=== PATIENT | female | born 1945 | race Caucasian/White ===

== ENCOUNTER 2017-04-23 21:00 | Emergency (ER) | payer OTHER ==
[~2017-04-23] VITALS: Ht 139.7 cm; Wt 69.3 kg
[~2017-04-23 21:00] MED LIST: ACET-1256 PO; ATOR-22 PO; CALCTAB5 PO; VITAMIN D PO; VITAMIN E PO; ZNTT/150 PO
[2017-04-23 21:05] VITALS: TEMP 36.7; Ht 139.7 cm; Wt 69.3 kg
--- NOTE | 2017-04-23 21:18 | EMERGENCY ROOM VISIT NOTE ---
History Report prepared by Bridget: Magui Camargo Under the Supervision of: Dr. Tan Peña M.D. First contact with patient: 21:09 Chief Complaint: SWELLING TO EXTREMITY Stated Complaint: POSSIBLE DVT L LEG History of Present Illness The patient is a 72 year old female who presents to the Emergency Room with complaints of constant left lower leg swelling beginning 1 week ago. The patient states that she drove 4 hours to [place] and 2 days after her trip she began to notice her left leg swelling. She complains of leg tightness. She denies any fever or pain. She reports that she follows with an orthopedic doctor for back pain in [place]. Source of History: patient Onset: 1 week ago Position: leg (left) Quality: other (swelling) Timing: constant Associated Symptoms: No fevers Note: Complains of leg tightness. Review of Systems See HPI for pertinent positives & negatives. A total of 10 systems reviewed and were otherwise negative. Past Medical & Surgical Medical Problems: (1) Hernia Family History Gallbladder disease Kidney disease Kidney stones Lung disease Social History Smoking Status: Never Smoker Smokeless Tobacco Use: No Alcohol Use: none Marital Status: single Occupation Status: retired Current/Historical Medications Scheduled Atorvastatin (Lipitor), 20 MG PO DAILY Calcium Carbonate-Vitamin D W/ (Caltrate 600 Plus), 1 TAB PO DAILY Docusate Sodium (Docusate Sodium), 1 CAP PO DAILY Vitamin E (E-400), 400 UNIT PO DAILY Scheduled PRN Acetaminophen (Tylenol), 500 MG PO Q4H PRN for Pain Dicyclomine Hcl (Bentyl), 10 MG PO QID PRN for Pain Hydrocodone/Acetaminophen 7.5MG/325MG ([place] 7.5MG/325MG), 1 TAB PO Q6 PRN for Pain Lidocaine (Lidoderm Patch 5%), 1 PATCH TOP DAILY PRN for Pain Ranitidine (Zantac), 150 MG PO DAILY PRN for GI Upset Allergies Coded Allergies: Morphine (Verified Adverse Reaction, Intermediate, BLOOD SUGAR ISSUES, BLOOD PRESSURE ISSUES, 07/30/14) Physical Exam Vital Signs Date Time Temp Pulse Resp B/P (MAP) Pulse Ox O2 Delivery O2 Flow Rate FiO2 04/23/17 22:52 64 18 144/81 97 04/23/17 21:05 36.7 70 18 154/76 95 Room Air Physical Exam GENERAL: Patient is a healthy-appearing well-nourished [] HEAD: Normocephalic atraumatic EYES: Ocular movements intact pupils equal and react to light OROPHARYNX mucous membranes are moist no exudates present no erythema or edema present NECK: Supple no nuchal rigidity CHEST: Good equal expansion LUNGS: Clear and equal to auscultation CARDIAC: Normal S1 and S2 ABDOMEN: Soft nontender no guarding BACK: No CVA tenderness EXTREMITIES: No pain upon palpation normal muscle strength in all groups no clubbing cyanosis or edema NEURO: Patient is following commands and answering questions appropriately. Alert and oriented x3 Cranial Nerves 2-12 grossly intact Medical Decision & Procedures ER Provider Diagnostic Interpretation: Radiology results as stated below per my review and radiologist interpretation: ULTRASOUND LEFT LOWER EXTREMITY VENOUS TECHNIQUE: Real-time, grayscale, and color Doppler sonography of the deep veins of the left lower extremity was performed from the inguinal crease to the calf. Compression and augmentation were utilized. FINDINGS: There is no sonographic evidence of deep venous thrombosis identified in the left lower extremity. The common femoral, superficial femoral, and popliteal veins are patent and normally compressible. The greater saphenous vein and the profunda femoris vein at the junction with the common femoral vein are clear. The visualized calf veins are patent. IMPRESSION: There is no sonographic evidence of deep venous thrombosis identified in the left lower extremity. Electronically signed by: Chalino Desai M.D. 04/23/2017 10:09 PM Dictated Date/Time: 04/23/2017 10:08 PM ED Course 2110: Past medical records reviewed. The patient was evaluated in room C6. A complete history and physical examination was performed. 2253: Upon reexamination the patient is doing well. I discussed results and treatment plan with the patient. She verbalizes agreement and understanding. The patient is ready for discharge. Medical Decision Differential diagnosis: Etiologies such as DVT, musculoskeletal, infection, joint effusion, trauma, lymphedema, idiopathic, CHF, as well as others were entertained. Medication Reconciliation: I attest that I have personally reviewed the patient' s current medication list Blood Pressure Screening: Patient was found to have an elevated blood pressure and was referred to their primary care doctor for recheck and further treatment This is a 72-year-old female who presents emergency department complaining of left leg swelling. There is no evidence of swelling on examination however the patient was sent for an ultrasound which did not show any evidence of a DVT. I stressed the need for follow-up with orthopedics if the patient is continue to have pain to have a repeat ultrasound done at approximately one week. Patient was given compression stockings in the emergency department and was in agreement with the treatment plan. Impression Primary Impression: Calf pain Scribe Attestation The scribe's documentation has been prepared under my direction and personally reviewed by me in its entirety. I confirm that the note above accurately reflects all work, treatment, procedures, and medical decision making performed by me. Departure Information Dispostion Home / Self-Care Referrals Boubacar Lou D.O. (PCP) Forms HOME CARE DOCUMENTATION FORM, IMPORTANT VISIT INFORMATION, WORK / SCHOOL INSTRUCTIONS Patient Instructions Diya GANDHI [facility] Additional Instructions Follow up with DR Mann's office Need repeat U/S in one week if continuing to have leg pain You were found to have an elevated blood pressure today (>120 sytolic or >90 diastolic). Per medicare guidelines, you need to follow up with this blood pressure screening with your Primary Care Physician (PCP). For a new PCP call [phone]. You have been examined and treated today on an emergency basis only. This is not a substitute for, or an effort to provide, complete comprehensive medical care. It is impossible to recognize and treat all injuries or illnesses in a single emergency department visit. It is therefore important that you follow up closely with Dr Lou. Call as soon as possible for an appointment. Thank you for your time and consideration. I look forward to speaking with you again soon. Please don't hesitate to call us if you have any questions. Problem Qualifiers Primary Impression: Calf pain Laterality: left Qualified Codes: M79.662 - Pain in left lower leg
[2017-04-23] MEDS ORDERED: VITACAP37 PO (21:54)
[2017-04-23] MEDS ORDERED: DICY10CA55 PO (21:54)
[2017-04-23] MEDS ORDERED: HYDR-3983 PO (21:54)
[2017-04-23] MEDS ORDERED: CHOL1000 PO (21:54)
[2017-04-23] MEDS ORDERED: DOCU100C31 PO (21:54)
[2017-04-23] MEDS ORDERED: CALCTAB7 PO (21:54)
--- NOTE | 2017-04-23 22:10 | DIAGNOSTIC IMAGING REPORT ---
ULTRASOUND LEFT LOWER EXTREMITY VENOUS CLINICAL HISTORY: Left leg swelling. COMPARISON STUDY: No priors. TECHNIQUE: Real-time, grayscale, and color Doppler sonography of the deep veins of the left lower extremity was performed from the inguinal crease to the calf. Compression and augmentation were utilized. FINDINGS: There is no sonographic evidence of deep venous thrombosis identified in the left lower extremity. The common femoral, superficial femoral, and popliteal veins are patent and normally compressible. The greater saphenous vein and the profunda femoris vein at the junction with the common femoral vein are clear. The visualized calf veins are patent. IMPRESSION: There is no sonographic evidence of deep venous thrombosis identified in the left lower extremity. Electronically signed by: Chalino Desai M.D. 04/23/2017 10:09 PM Dictated Date/Time: 04/23/2017 10:08 PM
[2017-04-23] MEDS ORDERED: NF656 TOP (22:31)
[2017-04-23 22:52] VITALS: BP 144/81; PULSE 64; O2SAT 97
== END 2017-04-23 22:53 | disposition home or self-care (01) ==
LOC: C.EDB 21:01 → C.EDC 22:53
DX: M79.662 Pain in left lower leg (principal); Z83.79 Family history of other diseases of the digestive system; Z84.1 Family history of disorders of kidney and ureter; Z83.6 Family history of other diseases of the respiratory system; Z79.899 Other long term (current) drug therapy

== ENCOUNTER → 2017-05-17 | Outpatient (CLI) | payer OTHER ==
[~2017-05-17] MED LIST changes: -CALCTAB5 PO; +CALCTAB7 PO; +DICY10CA55 PO; +DOCU100C31 PO; +HYDR-3983 PO; +NF656 TOP; +VITACAP37 PO; -VITAMIN D PO; -VITAMIN E PO
--- NOTE | 2017-05-17 14:32 | MAMMOGRAPHY REPORT ---
BILATERAL DIGITAL SCREENING MAMMOGRAM WITH CAD: 05/17/2017 CLINICAL HISTORY: Routine screening. The patient reported to the technologist that she has intermitt ent bilateral tenderness. TECHNIQUE: Current study was also evaluated with a Computer Aided Detection (CAD) system. Bilateral CC and MLO views were obtained. COMPARISON: Comparison is made to exams dated: 03/25/2016 mammogram, 01/08/2015 mammogram - [facility], 01/29/2012 mammogram, 02/13/2011 mammogram, 02/03/2010 mammogram, and 12/05/2008 [facility]og [facility]. BREAST COMPOSITION: There are scattered areas of fibroglandular density in both breasts. FINDINGS: No suspicious masses, calcifications, or areas of architectural distortion are noted in ei ther breast. There has been no significant interval change compared to prior exams. IMPRESSION: ACR BI-RADS CATEGORY 1: NEGATIVE There is no mammographic evidence of malignancy. A 1 year screening mammogram is recommended. Also r ecommend clinical follow-up for bilateral intermittent tenderness. The patient will receive written notification of the results. Approximately 10% of breast cancers are not detected with mammography. A negative mammographic report should not delay biopsy if a clinically suggestive mass is present. Geeta Nye M.D. /:05/17/2017 12:39:54 Pattern Marking Supervisor: Vivian LUA)(M), [facility] letter sent: Normal 1/2 BI-RADS Code: ACR BI-RADS Category 1: Negative
== END | disposition home or self-care (01) ==
LOC: C.MAMM 12:16
PROVIDERS: ATTEND Family Medicine
DX: Z12.31 Encounter for screening mammogram for malignant neoplasm of breast (principal)

== ENCOUNTER → 2017-12-22 | Day surgery (SDC) | payer OTHER ==
[2017-12-07 15:17] VITALS: Ht 139.7 cm; Wt 65.9 kg
[~2017-12-22] VITALS: Ht 139.7 cm; Wt 65.9 kg
[~2017-12-22] MED LIST changes: +500ML BSS 0.3ML EPI 1:1000PF IRRIG ONE; +ACETAMINOPHEN 325 MG TAB PO PRN; +AMVISC PLUS 0.8ML SYRINGE INT OCU ONE; +ATROPINE SULFATE 0.1 MG/ML 5ML SYR IV PRN; +AcetaZOLAMIDE 250 MG TAB PO SCH; +BETAXOLOL HCL 0.25% OP SUSP PER DROP CHARGE OPR SCH; +BRIMONIDINE TART 0.2% OP SOLN PER DROP CHARGE ONE; +BSS FLUSH ONE; -DOCU100C31 PO; +ENDOCOAT 0.85ML SYRINGE INT OCU ONE; +EpINEphrine INJ 1MG/ML AMP 1 MG/ML AMP ONE; +LACTATED RINGER'S 1000ML 500 ML IV SCH; +LIDO1PAD2 TOP; +LIDOCAINE 4% OP SOLN DROP CHARGE ONE; +LIDOCAINE 4% OP SOLN DROP CHARGE OPR SCH; +LIDOCAINE HCL 1% MPF 2 ML VIAL ONE; +MIDAZOLAM HCL 1 MG/ML 2ML VIAL ONE; +MISCCAP80 PO; +MIX: 4ML BSS 1ML EPI 1:1000 PF INSTIL ONE; +MOXIFLOXACIN OPH SOLN PER DROP CHARGE ONE; -NF656 TOP; +POVIDONE-IODINE OP SOLN 30 ML BTL ONE; +PROPARACAINE 0.5% OP SOLN PER DROP CHARGE OPR SCH; +RANI150T85 PO; +TOBRAMYCIN/DEXAMETHASONE OPH OINT PER APPLN CHARGE ONE; -ZNTT/150 PO
--- NOTE | 2017-12-22 07:17 | History & Physical Bridge - SC ---
H&P Re-Evaluation Bridge Note: I have examined the patient, reviewed the History & Physical and in the interval since the performance of the History & Physical I have noted the following changes of clinical significance: No changes noted
[2017-12-22] MEDS: PHENYLEPHRINE HCL 2.5% OP SOLN PER DROP CHARGE OPR SCH ×2 (07:58→08:04)
[2017-12-22] MEDS: TROPICAMIDE 1% OP SOLN PER DROP CHARGE OPR SCH ×2 (07:59→08:05)
[2017-12-22] MEDS: CYCLOPENTOLATE HCL 1% OP SOLN PER DROP CHARGE OPR SCH ×2 (08:00→08:06)
[2017-12-22] MEDS: MOXIFLOXACIN OPH SOLN PER DROP CHARGE OPR SCH ×2 (08:01→08:11)
--- NOTE | 2017-12-22 08:42 | [facility] Operative Report ---
Operative Report Date of Service Dec 22, 2017. Operative Report 1. PREOPERATIVE DIAGNOSIS: Senile nuclear cataract, right eye. 2. POSTOPERATIVE DIAGNOSIS: Senile nuclear cataract, right eye. 3. PROCEDURE: Phacoemulsification of right cataract with posterior chamber lens implant, type Bausch [employer] Lomb, model MI60L, power +29.5 diopters. ANESTHESIA: Local standby. SURGEON: Dr. Richardson. COMPLICATIONS: None. OPERATING TIME: 10 minutes. 4. OPERATION AND FINDINGS: DESCRIPTION OF PROCEDURE: The right pupil was dilated. The anesthetic was administered using a topical technique. The right eye was prepped and draped. A speculum was placed. A clear corneal incision was formed. The chamber was filled with Amvisc Plus and Endocoat. Epinephrine solution was used. A paracentesis was placed. A capsulorrhexis was performed. The nucleus was hydrodissected. The lens was removed with phacoemulsification. Time was 1.76 seconds. The aspiration unit was used to remove the cortex. The capsule was filled with Amvisc Plus. The lens implant was folded and placed into the capsule. The incision was hydrated. The Amvisc was aspirated. The wound was secure. The chamber was deep. The pupil was round. Brimonidine, TobraDex ointment and Vigamox solution were placed. The speculum was removed. The patient was returned to the Recovery Room in stable condition. I attest to the content of the Intraoperative Record and any orders documented therein. Any exceptions are noted below. The scribe's documentation has been prepared in my presence, under my direction and personally reviewed by me in its entirety. I confirm that the note above accurately reflects all work, treatment, procedures, and medical decision making performed by me. I personally scribed for Jian Richardson M.D. (EMMANUEL) on 12/22/17 at 08:42. Electronically submitted by Marylou Hernandez (ALO).
--- NOTE | 2017-12-22 08:44 | Discharge Instructions-SurgCtr ---
Discharge Instructions Date of Service Dec 22, 2017. Visit Reason for Visit: Cataract Right Eye Discharge Discharge Diagnosis / Problem: lens implant right eye Discharge Goals Goal(s): Improve function Activity Recommendations Activity Limitations: resume your previous activity Lifting Limitations: no more than 10 pounds Exercise/Sports Limitations: gradually increase as tolerated May Resume Sexual Activity: when tolerated Shower/Bathe: tomorrow Driving or Machine Use: resume 1 day after discharge Anesthesia . Post Anesthesia Instructions: If you have had General Anesthesia or IV Sedation: * Do not drive today. * Resume driving when surgeon permits. * Do not make important decisions or sign legal documents today. * Call surgeon for: 1. Temperature elevations greater than 101 degrees F. 2. Uncontrollable pain. 3. Excessive bleeding. 4. Persistent nausea and vomiting. 5. Medication intolerance (nausea, vomiting or rash). * For nausea and vomiting use only clear liquids such as: tea, soda, bouillon until nausea subsides, then gradually increase diet as tolerated. * If you have any concerns or questions, call your surgeon's office. If physician is unavailable and it is an emergency, call 911 or go to the nearest emergency room. . Instructions / Follow-Up Instructions / Follow-Up ACTIVITY RECOMMENDATIONS: * Light activities. * Mild irritation and blurred vision are common for the first few days. * You may walk outside, read, watch television. * Redness around the white part of the eye is common. MEDICATIONS: Resume previous medications unless instructed otherwise by your surgeon. * Take white Diamox (Acetazolamide) tablet at 1 pm today. Start all eye drops at 1 pm today: * Eye drops (today and tomorrow): Prednisone - one drop in operative eye every 3 hours while awake Ofloxacin - one drop in operative eye every 3 hours while awake SPECIAL CARE INSTRUCTIONS: * Tape plastic shield over eye to sleep at night. Call your doctor at with any concerns or problems. FOLLOW UP VISIT: Follow-up with Dr Richardson at [facility] as scheduled. Diet Recommendations Home Diet: no limitations Procedures Procedures Performed: Right Cataract Phacoemulsification With Intraocular Lens Implant Pending Studies Studies pending at discharge: no Medical Emergencies . Who to Call and When: Medical Emergencies: If at any time you feel your situation is an emergency, please call 911 immediately. . Non-Emergent Contact Non-Emergency issues call your: Aircraft Sheet Metal Mechanic Call Non-Emergent contact if: your pain is not controlled [phone] . . "Provider Documentation" section prepared by Jian Richardson. .
[2017-12-22 08:45] VITALS: TEMP 36.3
--- NOTE | 2017-12-22 09:03 | Anesthesia Progress Nt - [facility] ---
Anesthesia Post Op Note Date & Time Dec 22, 2017 at 09:03 Vital Signs Pain Intensity: 0 Vital Signs Past 12 Hours Date Time Temp Pulse Resp B/P (MAP) Pulse Ox O2 Delivery O2 Flow Rate FiO2 12/22/17 08:45 36.3 53 16 142/82 (102) 98 Room Air 12/22/17 07:50 36.6 59 20 119/81 (94) 97 Room Air Notes Mental Status: alert / awake / arousable, participated in evaluation Pt Amnestic to Procedure: Yes Nausea / Vomiting: adequately controlled Pain: adequately controlled Airway Patency, RR, SpO2: stable & adequate BP & HR: stable & adequate Hydration State: stable & adequate Anesthetic Complications: no major complications apparent
[2017-12-22 09:12] VITALS: BP 148/84; PULSE 61; O2SAT 96
== END | disposition home or self-care (01) ==
LOC: X.SURG 07:27
PROVIDERS: ATTEND Specialist
DX: H25.11 Age-related nuclear cataract, right eye (principal); I10 Essential (primary) hypertension; Z88.0 Allergy status to penicillin

== ENCOUNTER → 2018-01-05 | Day surgery (SDC) | payer OTHER ==
[2018-01-04 14:36] VITALS: Ht 139.7 cm; Wt 65.9 kg
[~2018-01-05] VITALS: Ht 139.7 cm; Wt 65.9 kg
[~2018-01-05] MED LIST changes: +BETAXOLOL HCL 0.25% OP SUSP PER DROP CHARGE OPL SCH; -BETAXOLOL HCL 0.25% OP SUSP PER DROP CHARGE OPR SCH; +EpHEDrine SULFATE INJ 50 MG/ML AMP IV PRN; +FENTANYL CITRATE INJ 50 MCG/1 ML 2 ML VIAL IV PRN; +FLUMAZENIL 0.1 MG/1 ML 10 ML VIAL IV PRN; +HYDROmorphone INJ 2 MG/ML SYR/VIAL IV PRN; +LABETALOL HCL IV 5 MG/ML 20ML IV PRN; +LIDOCAINE 4% OP SOLN DROP CHARGE OPL SCH; -LIDOCAINE 4% OP SOLN DROP CHARGE OPR SCH; +MEPERIDINE HCL 25 MG/ML CARP IV PRN; +NALOXONE HCL 0.4 MG/1 ML VIAL/CARP IV PRN; +OCUCOAT 1 ML SOLN IO ONE; +ONDANSETRON INJ 2 MG/ML 2 ML VIAL IV PRN; +PHENYLEPHRINE 100MCG/ML 5ML SYR IV PRN; +PROPARACAINE 0.5% OP SOLN PER DROP CHARGE OPL SCH; -PROPARACAINE 0.5% OP SOLN PER DROP CHARGE OPR SCH
[2018-01-05] MEDS: PHENYLEPHRINE HCL 2.5% OP SOLN PER DROP CHARGE OPL SCH ×2 (08:11→08:16)
[2018-01-05] MEDS: TROPICAMIDE 1% OP SOLN PER DROP CHARGE OPL SCH ×2 (08:12→08:17)
[2018-01-05] MEDS: CYCLOPENTOLATE HCL 1% OP SOLN PER DROP CHARGE OPL SCH ×2 (08:13→08:18)
[2018-01-05] MEDS: MOXIFLOXACIN OPH SOLN PER DROP CHARGE OPL SCH ×2 (08:14→08:24)
--- NOTE | 2018-01-05 08:51 | [facility] Operative Report ---
Operative Report Date of Service Jan 05, 2018. Operative Report 1. PREOPERATIVE DIAGNOSIS: Senile nuclear cataract, left eye. 2. POSTOPERATIVE DIAGNOSIS: Senile nuclear cataract, left eye. 3. PROCEDURE: Phacoemulsification of left cataract with posterior chamber lens implant, type Bausch [employer] Lomb, model MI60L, power +28.0 diopters. ANESTHESIA: Local standby. SURGEON: Dr. Richardson. COMPLICATIONS: None. OPERATING TIME: 10 minutes. 4. OPERATION AND FINDINGS: DESCRIPTION OF PROCEDURE: The left pupil was dilated. The anesthetic was administered using a topical technique. The left eye was prepped and draped. A speculum was placed. A clear corneal incision was formed. The chamber was filled with Amvisc Plus and Endocoat. Epinephrine solution was used. A paracentesis was placed. A capsulorrhexis was performed. The nucleus was hydrodissected. The lens was removed with phacoemulsification. Time was 2.35 seconds. The aspiration unit was used to remove the cortex. The capsule was filled with Amvisc Plus. The lens implant was folded and placed into the capsule. The incision was hydrated. The Amvisc was aspirated. The wound was secure. The chamber was deep. The pupil was round. Brimonidine, TobraDex ointment and Vigamox solution were placed. The speculum was removed. The patient was returned to the Recovery Room in stable condition. I attest to the content of the Intraoperative Record and any orders documented therein. Any exceptions are noted below. The scribe's documentation has been prepared in my presence, under my direction and personally reviewed by me in its entirety. I confirm that the note above accurately reflects all work, treatment, procedures, and medical decision making performed by me. I personally scribed for Jian Richardson M.D. ([email or web address]) on 01/05/18 at 08:51. Electronically submitted by Marylou Hernandez (ALO).
--- NOTE | 2018-01-05 08:53 | Discharge Instructions-SurgCtr ---
Discharge Instructions Date of Service Jan 05, 2018. Visit Reason for Visit: Cataract Left Eye Discharge Discharge Diagnosis / Problem: lens implant left eye Discharge Goals Goal(s): Improve function Activity Recommendations Activity Limitations: resume your previous activity Lifting Limitations: no more than 10 pounds Exercise/Sports Limitations: gradually increase as tolerated May Resume Sexual Activity: when tolerated Shower/Bathe: tomorrow Driving or Machine Use: resume 1 day after discharge Anesthesia . Post Anesthesia Instructions: If you have had General Anesthesia or IV Sedation: * Do not drive today. * Resume driving when surgeon permits. * Do not make important decisions or sign legal documents today. * Call surgeon for: 1. Temperature elevations greater than 101 degrees F. 2. Uncontrollable pain. 3. Excessive bleeding. 4. Persistent nausea and vomiting. 5. Medication intolerance (nausea, vomiting or rash). * For nausea and vomiting use only clear liquids such as: tea, soda, bouillon until nausea subsides, then gradually increase diet as tolerated. * If you have any concerns or questions, call your surgeon's office. If physician is unavailable and it is an emergency, call 911 or go to the nearest emergency room. . Instructions / Follow-Up Instructions / Follow-Up ACTIVITY RECOMMENDATIONS: * Light activities. * Mild irritation and blurred vision are common for the first few days. * You may walk outside, read, watch television. * Redness around the white part of the eye is common. MEDICATIONS: Resume previous medications unless instructed otherwise by your surgeon. * Take white Diamox (Acetazolamide) tablet at 1 pm today. Start all eye drops at 1 pm today: * Eye drops (today and tomorrow): Prednisone - one drop in operative eye every 3 hours while awake Ofloxacin - one drop in operative eye every 3 hours while awake SPECIAL CARE INSTRUCTIONS: * Tape plastic shield over eye to sleep at night. Call your doctor at with any concerns or problems. FOLLOW UP VISIT: Follow-up with Dr Richardson at [facility] as scheduled. Diet Recommendations Home Diet: no limitations Procedures Procedures Performed: cataract extraction with lens implant Pending Studies Studies pending at discharge: no Medical Emergencies . Who to Call and When: Medical Emergencies: If at any time you feel your situation is an emergency, please call 911 immediately. . Non-Emergent Contact Non-Emergency issues call your: Horse Racer Call Non-Emergent contact if: your pain is not controlled [phone] . . "Provider Documentation" section prepared by Jian Richardson. .
[2018-01-05 08:54] VITALS: TEMP 36.3
[2018-01-05 09:27] VITALS: BP 139/81; PULSE 54; O2SAT 99
--- NOTE | 2018-01-05 09:30 | Anesthesia Progress Nt - [facility] ---
Anesthesia Post Op Note Date & Time Jan 05, 2018 at 09:29 Vital Signs Pain Intensity: 2 Vital Signs Past 12 Hours Date Time Temp Pulse Resp B/P (MAP) Pulse Ox O2 Delivery O2 Flow Rate FiO2 01/05/18 08:54 36.3 57 16 129/80 (96) 98 Room Air 01/05/18 08:03 36.0 62 18 153/87 (109) 97 Room Air Notes Mental Status: alert / awake / arousable, participated in evaluation Pt Amnestic to Procedure: Yes Nausea / Vomiting: adequately controlled Pain: adequately controlled Airway Patency, RR, SpO2: stable & adequate BP & HR: stable & adequate Hydration State: stable & adequate Anesthetic Complications: no major complications apparent
== END | disposition home or self-care (01) ==
LOC: X.SURG 07:53
PROVIDERS: ATTEND Specialist
DX: H25.12 Age-related nuclear cataract, left eye (principal); G47.33 Obstructive sleep apnea (adult) (pediatric); E66.9 Obesity, unspecified; Z68.34 Body mass index [BMI] 34.0-34.9, adult; Z98.890 Other specified postprocedural states; Z88.1 Allergy status to other antibiotic agents; Z98.41 Cataract extraction status, right eye; Z90.49 Acquired absence of other specified parts of digestive tract

== ENCOUNTER 2019-05-02 09:54 | Inpatient (IN) ==
--- NOTE | 2019-03-21 15:53 | PAT Medication Instructions ---
Medication Instructions Date of Service March 21, 2019 Home Medications atorvastatin 20 mg PO QPM calcium carbonate [Calcium 600] 600 mg PO QPM cholecalciferol (vitamin D3) [Vitamin D3] 1,000 unit PO DAILY ranitidine HCl 150 mg PO DAILY PRN vitamin E 800 unit PO QPM STOP taking 2 weeks before surgery (or as soon as possible if surgery is within 2 weeks) vitamin E 800 unit PO QPM DO NOT take the morning of surgery cholecalciferol (vitamin D3) [Vitamin D3] 1,000 unit PO DAILY ranitidine HCl 150 mg PO DAILY PRN Take evening before surgery atorvastatin 20 mg PO QPM calcium carbonate [Calcium 600] 600 mg PO QPM Other Notes If you have any questions please call us at [phone] or [phone] or [phone] or [phone]
--- NOTE | 2019-03-22 12:56 | Anesthesiology Consultation ---
Date of Service March 22, 2019 Assessment & Plan (1) Encounter for pre-operative examination: Chart Review Chart Review: Acceptable Risk for Surgery and Patient seen in Pre Admission Testing Teaching & Discussion Pre-Anesthesia Teaching/Discussion Notes: Instructed NPO after midnight before surgery,except medications with 15 cc of water. Medication instructions provided according to the PAT guidelines. History Surgery Operation Date: 05/02/19 08:25 Proposed Procedures p Left Reverse Total Shoulder Replacement - Juno Gayle DO Height/Weight Height: 4 ft 7 in Weight: 66.5 kg Allergies Allergy/AdvReac Type Severity Reaction Status Date / Time amoxicillin Allergy Unknown UNKNOWN Verified 03/22/19 12:56 REACTION Medications Home Medications Medication Instructions Recorded Confirmed Last Taken atorvastatin 20 mg PO QPM 03/21/19 03/21/19 Unknown calcium carbonate [Calcium 600] 600 mg PO QPM 03/21/19 03/21/19 Unknown cholecalciferol (vitamin D3) 1,000 unit PO DAILY 03/21/19 03/21/19 Unknown [Vitamin D3] ranitidine HCl 150 mg PO DAILY PRN 03/21/19 03/21/19 Unknown vitamin E 800 unit PO QPM 03/21/19 03/21/19 Unknown Past Medical History Medical History Chronic back pain Diverticular disease GERD (gastroesophageal reflux disease) CONTROLLED Hearing deficit Hyperlipidemia Obesity Osteoarthritis Exercise / Class Metabolic Activity III < 4 Walking/Shop/Light housework Past Family History Family History Daughter Family history of diabetes mellitus Past Surgical History Surgical History History of bowel resection History of colonoscopy History of colostomy 2/2 DIVERTICULAR DISEASE History of colostomy reversal History of herniorrhaphy UMBILICAL Past Anesthesia History No Family Hx of Anesthesia Complications and Other "Slow to wake" x 1 episode. No known hx reintubation. History of PONV No Hx of PONV and No Hx of Motion Sickness Social History Smoking Status: Never smoker Do You Dip or Chew Tobacco: No Hx Alcohol Use: No Hx Substance Use: No substance use type: does not use Review of Systems Patient denies chest pain, shortness of breath, cough, wheezing, palpitations. Physical Exam Vital Signs VITALS BP 119/68 P 69 TEMP 98.2 SP02 96%RA RESP 18 PHYSICAL Full neck and c-spine range of motion. Full TMJ range of motion. TMD 3 finger breaths Mallampati Score 3 Dentition: intact Lungs: clear throughout to auscultation Cardiac: regular rate and rhythm, no murmurs noted Spine: normal Carotid arteries: negative bruit Extremities: no edema Testing Laboratory Results 03/22/19 13:37 03/22/19 13:37 03/22/19 13:37 PT 9.8 INR 1.0 APTT 23.9 03/22/19 T&S O+Ab- Electrocardiogram Date: 03/22/19 Findings: + NSR @ (73) Chest X-Ray Date: 03/22/19 Findings: + NAD There is mild aortic tortuosity.
--- NOTE | 2019-03-22 14:02 | XRay Report ---
XR chest Pre-admission PA/Lat CLINICAL HISTORY: Preoperative chest COMPARISON STUDY: No previous studies for comparison. FINDINGS: The heart is the upper limits of normal in size. There is mild aortic tortuosity. There is no failure. There is no focal pulmonary consolidation. There are no pleural effusions.[ IMPRESSION: No active disease in the chest. Electronically signed by: Marko Soni M.D. 03/22/2019 2:01 PM
[2019-03-22 14:49] LABS: Basophils # (auto) 0.04 K/uL (0-0.2); Basophils % (auto) 0.5 %; Eosinophils # (auto) 0.22 K/uL (0-0.5); Eosinophils % (auto) 2.7 %; Hematocrit (blood only) 40.1 % (37-47); Hemoglobin 13.8 g/dL (12.0-16.0); Immature Granulocytes # (auto) 0.03 K/uL (0.00-0.02); Immature Granulocytes % (auto) 0.4 %; Lymphocytes # (auto) 3.06 K/uL (1.2-3.4); Lymphocytes % (auto) 37.3 %; Mean Corpuscular Hgb Conc 34.4 g/dL (32-36); Mean Platelet Volume 9.3 fL (7.4-10.4); Monocytes # (auto) 0.88 K/uL (0.11-0.59); Monocytes % (auto) 10.7 %; Neutrophils # (auto) 3.97 K/uL (1.4-6.5); Neutrophils % (auto) 48.4 %; Platelet Count 256 K/uL (130-400); RDW Coefficient of Variation 13.7 % (11.5-14.5); RDW Standard Deviation 43.3 fL (36.4-46.3); Red Blood Count 4.61 M/uL (4.2-5.4)
[2019-03-22 15:00] LABS: Partial Thromboplastin Ratio 0.9; Partial Thromboplastin Time 23.9 Seconds (21.0-31.0); Prothrombin Time 9.8 Seconds (9.0-12.0)
[2019-03-22 15:04] LABS: BUN Creatinine Ratio 28.9 (10-20); Calcium 9.1 mg/dl (8.5-10.1); Creatinine Clr Calc Pharmacy 57.2 ml/min; Est GFR (African American) 101.7; Est GFR (Non-African American) 87.7; Potassium 3.5 mmol/L (3.5-5.1)
--- NOTE | 2019-05-01 16:46 | History & Physical Report ---
Date of Service May 01, 2019 Assessment & Plan (1) Rotator cuff arthropathy of left shoulder: We will proceed with a left reverse shoulder arthroplasty. Postoperatively she will be placed in a sling and kept overnight in the hospital for postoperative medical management. She plans to use [employer] upon discharge. Present on Admission?: Yes History of Present Illness Chief Complaint: Rotator cuff arthropathy of the left shoulder Primary Care Provider: Boubacar Lou DO Korina is a pleasant 74-year-old female who initially hurt her shoulder in 2006. 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 She had an MRI in 2006 and again in 2012. The MRI showed a large retracted rotator cuff tear with muscle atrophy. She has never had any surgery to her shoulder. Unfortunately her shoulder is gotten to the point where it is unbearable. She has chronic pain in the shoulder. She has elected to proceed with a left reverse shoulder arthroplasty. Allergies Allergy/AdvReac Type Severity Reaction Status Date / Time amoxicillin Allergy Unknown UNKNOWN Verified 03/22/19 12:56 REACTION Home Medications Home Medications Medication Instructions Recorded Confirmed Type atorvastatin 20 mg PO QPM 03/21/19 03/21/19 History calcium carbonate [Calcium 600] 600 mg PO QPM 03/21/19 03/21/19 History cholecalciferol (vitamin D3) 1,000 unit PO DAILY 03/21/19 03/21/19 History [Vitamin D3] ranitidine HCl 150 mg PO DAILY PRN 03/21/19 03/21/19 History vitamin E 800 unit PO QPM 03/21/19 03/21/19 History Past Med/Surg History Medical History Chronic back pain Diverticular disease GERD (gastroesophageal reflux disease) CONTROLLED Hearing deficit Hyperlipidemia Obesity Osteoarthritis Surgical History History of bowel resection History of colonoscopy History of colostomy 2/2 DIVERTICULAR DISEASE History of colostomy reversal History of herniorrhaphy UMBILICAL Family History Daughter Family history of diabetes mellitus Social History Preferred Language: Emir[place] Communication Ability: Effective Truck Safety Inspector Required: No Beliefs That Will Affect Care: None Current Living Situation: Alone Other Information That Helps Us Care for You: No Feels Safe at Home: Yes Safety Concerns: Feels Safe At This Time Smoking Status: Never smoker Do You Dip or Chew Tobacco: No Second Hand Exposure: No Tobacco Cessation Education Requested by Patient: No Hx Alcohol Use: No Hx Substance Use: No Review of Systems All systems reviewed & are unremarkable except as noted in HPI & below Physical Exam Constitutional: WD/WN, vitals as above Eyes: PERRL, conjunctivae normal, anicteric sclerae ENMT: external ear and nose normal, oropharynx normal Neck: trachea midline, no thyromegaly Respiratory: normal respiratory effort Cardiovascular: RRR, no murmur, no edema Gastrointestinal (Abdomen): normal bowel sounds, soft, nontender, no hepatosplenomegaly Musculoskeletal: Physical examination of the left shoulder reveals decreased range of motion and significant weakness. There is tenderness palpation along the anterior glenohumeral joint line. The right upper extremity is neurovascularly intact. Psychiatric: A+Ox3, euthymic affect Results & Data Diagnostic Findings Radiographs of the left shoulder show some signs of osteoarthritis with blunting of the greater tuberosity and some superior migration of the humeral head on the glenoid.
[~2019-05-02 09:54] MED LIST changes: -500ML BSS 0.3ML EPI 1:1000PF IRRIG ONE; -ACET-1256 PO; -ACETAMINOPHEN 325 MG TAB PO PRN; +ACETAMINOPHEN 500 MG TAB PO SCH; -AMVISC PLUS 0.8ML SYRINGE INT OCU ONE; -ATOR-22 PO; -ATROPINE SULFATE 0.1 MG/ML 5ML SYR IV PRN; -AcetaZOLAMIDE 250 MG TAB PO SCH; -BETAXOLOL HCL 0.25% OP SUSP PER DROP CHARGE OPL SCH; -BRIMONIDINE TART 0.2% OP SOLN PER DROP CHARGE ONE; -BSS FLUSH ONE; +BUPIVACAINE 0.5 % 5 MG/1 ML PF 10ML VIAL ONE; -CALCTAB7 PO; +CEFAZOLIN 2000MG 2,000 MG/15 ML SYR IV SCH; -DICY10CA55 PO; -ENDOCOAT 0.85ML SYRINGE INT OCU ONE; -EpHEDrine SULFATE INJ 50 MG/ML AMP IV PRN; -EpINEphrine INJ 1MG/ML AMP 1 MG/ML AMP ONE; +FAMOTIDINE 20 MG TAB PO SCH; -FENTANYL CITRATE INJ 50 MCG/1 ML 2 ML VIAL IV PRN; -FLUMAZENIL 0.1 MG/1 ML 10 ML VIAL IV PRN; +GABAPENTIN 300 MG CAP PO SCH; -HYDR-3983 PO; -HYDROmorphone INJ 2 MG/ML SYR/VIAL IV PRN; -LABETALOL HCL IV 5 MG/ML 20ML IV PRN; -LACTATED RINGER'S 1000ML 500 ML IV SCH; -LIDO1PAD2 TOP; -LIDOCAINE 4% OP SOLN DROP CHARGE ONE; -LIDOCAINE 4% OP SOLN DROP CHARGE OPL SCH; -LIDOCAINE HCL 1% MPF 2 ML VIAL ONE; +LR 15ML/HR IV SCH; +LR 60ML/HR IV SCH; -MEPERIDINE HCL 25 MG/ML CARP IV PRN; -MIDAZOLAM HCL 1 MG/ML 2ML VIAL ONE; -MISCCAP80 PO; -MIX: 4ML BSS 1ML EPI 1:1000 PF INSTIL ONE; -MOXIFLOXACIN OPH SOLN PER DROP CHARGE ONE; -NALOXONE HCL 0.4 MG/1 ML VIAL/CARP IV PRN; -OCUCOAT 1 ML SOLN IO ONE; -ONDANSETRON INJ 2 MG/ML 2 ML VIAL IV PRN; -PHENYLEPHRINE 100MCG/ML 5ML SYR IV PRN; -POVIDONE-IODINE OP SOLN 30 ML BTL ONE; -PROPARACAINE 0.5% OP SOLN PER DROP CHARGE OPL SCH; -RANI150T85 PO; +ROPIVACAINE 0.5% HCL/PF 150 MG, BUPIVACAINE 0.5% MPF 30 ML, EPINEPHrine 30MG/30ML (OR U... INSTIL SCH; -TOBRAMYCIN/DEXAMETHASONE OPH OINT PER APPLN CHARGE ONE; +TRANEXAMIC ACID 1,000 MG **IV Intra-op IV SCH; +TRANEXAMIC ACID 1,000 MG **IV Pre-op IV SCH; -VITACAP37 PO
--- OUTSIDE RECORDS SUMMARY | 2019-05-02 09:58 | External Medical Summary | Continuity of Care Document ---
:1945 Author Name Mariano Pena, Provider Address Unavailable Unavailable , Care Team Providers Name Role Phone Unavailable Unavailable Unavailable JULIETTE GARZA Unavailable Unavailable Unavailable Unavailable Unavailable Problems Incisional hernia (553.21) (K43.2) Allergies and Adverse Reactions No Known Drug Allergies (Allergy) Medications Calcium 500 MG TABS; TAKE 1 TABLET DAILY. , M.D. Start: 09-Jul-2014 Refills: 0 Vitamin E 100 UNIT Oral Capsule; TAKE 1 CAPSULE DAILY. , M.D . Start: 09-Jul-2014 Refills: 0 Vitamin D3 93047 UNIT Oral Capsule , M.D. Start : 09-Jul-2014 Refills: 0 Lipitor 20 MG Oral Tablet; TAKE 1 TABLET DAILY. , M.D. Start: 09-Jul-2014 Refills: 0 Procedures History of Ovarian Cystectomy Status: Co mpleted History of Colostomy Status: Completed History of Incisional Hernia Repair - Incarcerated Status: Completed Immunizations Immunizations not documented Family History natural daughter Family history of diabetes mellitus (V18.0) (Z83.3) Status: Active Mother No pertinent family history (V49.89) (Z78.9) Status: Active Father No pertinent family history (V49.89) (Z78.9) Status: Active Unknown Family Member Family history of malignant neoplasm of breast (V16.3) Statu s: Active Comments: Other (Z80.3) Social History - Smoking Status Never smoker Plan of Treatment Planned Observations Planned Goals not documented Results No Known Results Results not documented
[2019-05-02] MEDS ORDERED: PROPOFOL IV EMULSION 10 MG/ML 20 ML VIAL IV ONE ×2 (10:09→11:09)
[2019-05-02] MEDS ORDERED: fentaNYL citrate 100 MCG/2 ML VIAL ONE (10:09)
[2019-05-02] MEDS ORDERED: LIDOCAINE HCL 2% 2 ML VIAL/AMP(20MG/ML) INFIL ONE (10:09)
[2019-05-02] MEDS ORDERED: MIDAZOLAM HCL 1 MG/ML 2ML VIAL ONE (10:09)
[2019-05-02] MEDS ORDERED: ROCURONIUM BROMIDE 10 MG/ML 5 ML VIAL ONE ×2 (10:09→11:09)
[2019-05-02] MEDS ORDERED: GLYCOPYRROLATE 0.2 MG/ML VIAL ONE (11:09)
[2019-05-02] MEDS ORDERED: ONDANSETRON INJ 2 MG/ML 2 ML VIAL ONE (11:09)
[2019-05-02] MEDS ORDERED: DEXAMETHASONE SOD INJ 4 MG/ML VIAL ONE (11:09)
[2019-05-02] MEDS ORDERED: NEOSTIGMINE METHYLSULFATE 5 MG/5 ML SYR ONE (11:09)
[2019-05-02] MEDS ORDERED: ORTHO JOINT ANESTHETIC ONE (11:10)
[2019-05-02] MEDS ORDERED: ATROPINE SULFATE 0.1 MG/ML 10ML SYR IV PRN (11:32)
[2019-05-02] MEDS ORDERED: HYDROmorphone INJ 1 MG/ML SYRINGE IV PRN (11:32)
[2019-05-02] MEDS ORDERED: fentaNYL citrate 100 MCG/2 ML VIAL IV PRN (11:32)
[2019-05-02] MEDS ORDERED: ONDANSETRON INJ 2 MG/ML 2 ML VIAL IV PRN ×2 (11:32→14:42)
[2019-05-02] MEDS ORDERED: ePHEDrine sulfate 50 MG/ML AMP IV PRN (11:32)
--- NOTE | 2019-05-02 11:41 | History & Physical Bridge Note ---
Date of Service May 02, 2019 History & Physical Bridge Note I have examined the patient, reviewed the History & Physical and in the interval since the performance of the History & Physical I have noted the following changes of clinical significance: no changes noted
--- NOTE | 2019-05-02 13:07 | Operative Report ---
Post Operative Report Pre & Post Diagnosis Operation Date: 05/02/19 12:05 Pre-Op Diagnosis: Chronic Rotator Cuff Tear, Left Shoulder Post-Op Diagnosis: Chronic Rotator Cuff Tear, Left Shoulder Procedure Operation Date: 05/02/19 12:05 Actual Procedures p Left Reverse Total Shoulder Replacement(Left) - Juno Gayle DO Surgeon Juno Gayle DO Manager Critical Care Juno Keith PAC Estimated Blood Loss 150 Findings Consistent with Post-Op Diagnosis Specimens Left humeral head Complications none Disposition Disposition: Recovery Room Indications Georges is a pleasant 74-year-old female who ruptured her left rotator cuff several years ago. She was working for the [employer] at the time. She never had surgical fixation but unfortunately over the years her shoulder pain is gotten worse. She went on to develop rotator cuff arthropathy of the left shoulder. After failing years of conservative treatment, she elected to proceed with a left reverse shoulder arthroplasty. Description of Procedure Implants used: I used a [employer] Comprehensive reverse total shoulder arthroplasty system with a size 6 press fit mini humeral stem, a standard humeral tray and a standard humeral bearing, a 25 mm mini baseplate with a 6.5 mm central screw and superior and inferior locking screws, and a size 36 mm eccentric glenosphere. The patient arrived at [facility] for the above procedure. There w ere seen in the preoperative holding area and the operative extremity was identified and signed. They were given a preoperative antibiotic and an interscalene nerve block. They were taken back to the operating room, laid on table in supine position, and put under general anesthesia. They were then put into the beachchair position. The shoulder was then prepped and draped in sterile fashion. A timeout was done and the patient in the operative extremity was properly identified. A deltopectoral approach was used. Dissection was taken down through the fascia and the deltoid was retracted laterally and the conjoined tendon was retracted medially. The anterior shoulder was exposed. The long head of the biceps tendon was tenodesed to the upper border of the pectoralis major. The subscap ularis was then released off the lesser tuberosity with a centimeter of cuff tissue remaining. The inferior capsule was released and the humeral head was dislocated. A canal finding reamer was sent down the center of the humeral canal. Sequential reaming up to a size 6 reamer was done. Off that reamer, a proximal humeral resection guide was placed. The proximal humerus was resected at 135 o f inclination and 25 of retroversion. Osteophytes were then removed and the glenoid was exposed. Time was spent doing a complete capsular and labral release. The glenoid guide was then placed in the inferior aspect of the glenoid. A 3.2 mm Steinmann pin was then placed into the glenoid vault at 10 of inclination. The glenoid baseplate was then reamed. The final size 25 mm mini baseplate was then impacted in the place. A 6.5 mm central screw was then placed followed by superior and inferior locking screws. A 36 mm eccentric glenoid sphere was then impacted into place. Surrounding soft tissues were then injected with 100 cc an orthopedic pain control cocktail. The proximal humerus was then exposed. Sequential broaching of the humerus up to a size 6 broach was done. Off that b meyers a standard humeral tray was trialed. The shoulder was then reduced, brought through a full range of motion and felt to be stable. The shoulder was then dislocated and the broach was removed. The final size 6 mini press-fit humeral stem was then impacted into place. A standard humeral bearing was then snapped onto a standard humeral tray and the ring-lock mechanism was engaged. The humeral tray was then impacted onto the humeral stem. The shoulder was once again reduced, brought through a full range of motion and felt to be stable. Portions of the subscapularis were chronically torn and it was unable to be repaired. A dilute betadyne lavage was then done for 3 minutes. The joint was then irrigated with normal saline solution. Hemostasis was obtained. The skin was then closed with 2-0 Vicryl, 3-0V lock suture, and melina. A soft dressing and a regular arm sling was placed. The patient was then extubated and transferred to a hospital bed. They were taken to the postanesthesia care unit in stable condition. They tolerated the procedure well. I attest to the content of the Intraoperative Record and any orders documented therein. Any exceptions are noted below.
--- NOTE | 2019-05-02 14:12 | XRay Report ---
XR shoulder LT min 2V routine CLINICAL HISTORY: Post shoulder surgery COMPARISON STUDY: Left shoulder 03/08/2019. FINDINGS: Status post reverse left total shoulder arthroplasty. The hardware appears intact. Skin sta ples are in place. No fracture or dislocation within the left shoulder. Bibasilar densities may repre sent atelectasis. IMPRESSION: Status post left reverse total shoulder arthroplasty. No evidence for hardware complicat ion. Electronically signed by: Dinesh eGe M.D. 05/02/2019 2:11 PM
[2019-05-02] MEDS ORDERED: BISACODYL 10 MG SUPP PR PRN (14:42)
[2019-05-02] MEDS ORDERED: TRAMADOL HCL 50 MG TABLET PO PRN (14:42)
[2019-05-02] MEDS ORDERED: METOCLOPRAMIDE HCL INJ 5 MG/ML 2 ML VIAL IV PRN (14:42)
[2019-05-02] MEDS ORDERED: MAGNESIUM HYDROXIDE SUSP 30 ML UDC PO PRN (14:42)
[2019-05-02] MEDS ORDERED: NALOXONE HCL 0.4 MG/1 ML VIAL/CARP IV PRN (14:42)
[2019-05-02] MEDS ORDERED: HYDROmorphone INJ 0.5 MG/0.5 ML SYR IV PRN (14:42)
--- NOTE | 2019-05-02 15:18 | Anesthesiology Progress Note ---
Date of Service May 02, 2019 Anesthesia Post Procedure Vital Signs Vital Signs: Temp Pulse Resp BP Pulse Ox 05/02/19 14:43 36.4 C L 44 L 15 106/67 93 05/02/19 14:30 53 L 18 113/53 L 98 05/02/19 14:15 36.0 C L 51 L 17 120/57 L 98 05/02/19 14:05 53 L 16 132/73 99 05/02/19 13:55 62 13 122/84 100 05/02/19 13:45 65 18 118/66 98 05/02/19 13:37 36.0 C L 72 18 118/63 98 05/02/19 10:37 36.6 C 54 L 20 140/74 98 Pain Intensity Left Shoulder: Pain Intensity: 4 Transfer of Care Handoff Completed per policy Notes Mental Status: alert / awake / arousable and participated in evaluation Patient Amnestic to Procedure: Yes Nausea / Vomiting: adequately controlled Pain: adequately controlled Airway Patency, RR, SpO2: stable & adequate BP & HR: stable & adequate Hydration State: stable & adequate Anesthetic Complications: no major complications apparent and Pt Satisfied with anesthetic care
[2019-05-02] MEDS: ACETAMINOPHEN 500 MG TAB PO SCH ×2 (15:20→21:02)
[2019-05-02] MEDS: SODIUM CHLORIDE 0.9% 1000ML 1,000 ML IV SCH (16:15)
[2019-05-02] MEDS: KETOROLAC TROMETHAMINE 15 MG/ML VIAL IV SCH (18:29)
[2019-05-02] MEDS: CEFAZOLIN 2000MG 2,000 MG/15 ML SYR IV SCH (20:23)
[2019-05-02] MEDS ORDERED: SENNA 8.6 MG TAB PO SCH (21:00)
[2019-05-02] MEDS ORDERED: ATORVASTATIN 20 MG TAB PO SCH (21:00)
[2019-05-02] MEDS ORDERED: DOCUSATE SODIUM 100 MG CAP PO SCH (21:00)
[2019-05-02] MEDS: DOCUSATE SODIUM 100 MG CAP PO SCH (21:02)
[2019-05-03] MEDS: SODIUM CHLORIDE 0.9% 1000ML 1,000 ML IV SCH (00:21)
[2019-05-03] MEDS: KETOROLAC TROMETHAMINE 15 MG/ML VIAL IV SCH ×3 (00:21→12:48)
[2019-05-03] MEDS: ACETAMINOPHEN 500 MG TAB PO SCH (04:54)
[2019-05-03] MEDS: CEFAZOLIN 2000MG 2,000 MG/15 ML SYR IV SCH (04:54)
[2019-05-03 06:42] LABS: Hematocrit (blood only) 34.2 % (37-47); Hemoglobin 11.5 g/dL (12.0-16.0); Immature Granulocytes # (auto) 0.04 K/uL (0.00-0.02); Immature Granulocytes % (auto) 0.3 %; Lymphocytes # (auto) 1.08 K/uL (1.2-3.4); Lymphocytes % (auto) 8.2 %; Mean Corpuscular Hgb Conc 33.6 g/dL (32-36); Mean Corpuscular Volume 87.9 fL (80-100); Mean Platelet Volume 9.3 fL (7.4-10.4); Monocytes # (auto) 1.01 K/uL (0.11-0.59); Monocytes % (auto) 7.6 %; Neutrophils % (auto) 83.9 %; Platelet Count 228 K/uL (130-400); RDW Coefficient of Variation 13.5 % (11.5-14.5); RDW Standard Deviation 43.7 fL (36.4-46.3); Red Blood Count 3.89 M/uL (4.2-5.4); White Blood Count 13.23 K/uL (4.8-10.8)
--- NOTE | 2019-05-03 06:42 | Orthopedic Progress Note ---
Date of Service May 03, 2019 Assessment & Plan (1) Rotator cuff arthropathy of left shoulder: Overall she is doing fairly well. She not having too much pain in the shoulder. She will be seen by physical therapy today for range of motion exercises. She can be discharged home later this morning. She will follow-up with orthopedics in 2 weeks. Present on Admission?: Yes Norma Hui was seen and examined at bedside this morning. Overall she is doing very well. She is not having any pain in the left shoulder. She is happy with her progress to this point. She was able to get some sleep last night. She has no complaints. Physical Exam Musculoskeletal: On physical examination of her left shoulder, the dressing is clean and dry. She is wearing her sling as instructed. Results & Data Vital Signs (Past 12 Hours) Vital Signs Temp Pulse Resp BP Pulse Ox 05/03/19 03:18 36.6 C 65 17 93/60 L 94 05/02/19 23:29 36.5 C 69 17 93/60 L 94 05/02/19 20:30 36.4 C L 75 18 106/68 95 Diagnostic Findings Postoperative x-rays of the left shoulder show the prosthesis to be in anatomic alignment without any evidence of fracture, dislocation, or loosening.
--- NOTE | 2019-05-03 06:43 | Discharge Summary ---
Date of Service May 03, 2019 Admission HPI Per Admitting Provider Korina is a pleasant 74-year-old female who initially hurt her shoulder in 2006. 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 She had an MRI in 2006 and again in 2012. The MRI showed a large retracted rotator cuff tear with muscle atrophy. She has never had any surgery to her shoulder. Unfortunately her shoulder is gotten to the point where it is unbearable. She has chronic pain in the shoulder. She has elected to proceed with a left reverse shoulder arthroplasty. Discharge Data Consultations 05/02/19 14:42 Consult Case Management - Discharge Planning Routine Procedures Performed Operation Date: 05/02/19 12:05 Actual Procedures p Left Reverse Total Shoulder Replacement(Left) - Juno Gayle DO [facility] Course (1) Rotator cuff arthropathy of left shoulder: On May 02, 2019 Korina arrived at [facility] and underwent a left reverse shoulder arthroplasty without complication. She had a general anesthetic and a left interscalene nerve block. Postoperatively she was discharged to general orthopedic floors. Her hospital course is uneventful. On postop day #1 her H&H was stable and her pain was well controlled. She was able to participate well with physical therapy doing range of motion exercises. She was then discharged home with the above instructions. She will follow-up with orthopedics in 2 weeks. Discharge Instructions Home Medications Medication Instructions Recorded Confirmed atorvastatin 20 mg PO QPM 03/21/19 05/02/19 calcium carbonate [Calcium 600] 600 mg PO QPM 03/21/19 05/02/19 cholecalciferol (vitamin D3) 1,000 unit PO DAILY 03/21/19 05/02/19 [Vitamin D3] ranitidine HCl 150 mg PO DAILY PRN 03/21/19 05/02/19 vitamin E 800 unit PO QPM 03/21/19 05/02/19 docusate sodium 200 mg PO HS 05/02/19 05/02/19 Previous Rx's Medication Instructions Recorded oxycodone 5 mg PO Q6H PRN #30 cap 05/03/19 tramadol 50 - 100 mg PO Q4H PRN #30 tab 05/03/19
[2019-05-03 07:20] LABS: BUN Creatinine Ratio 14.6 (10-20); Calcium 8.2 mg/dl (8.5-10.1); Creatinine Clr Calc Pharmacy 38.5 ml/min; Est GFR (African American) 69.7; Est GFR (Non-African American) 60.1; Potassium 3.8 mmol/L (3.5-5.1)
--- NOTE | 2019-05-03 08:04 | Anesthesiology Progress Note ---
Date of Service May 03, 2019 Anesthesia Post Procedure Vital Signs Vital Signs: Temp Pulse Pulse Resp BP Pulse Ox 05/03/19 07:24 36.8 C 78 18 91/59 L 93 05/03/19 03:18 36.6 C 65 17 93/60 L 94 05/02/19 23:29 36.5 C 69 17 93/60 L 94 05/02/19 20:30 36.4 C L 75 18 106/68 95 05/02/19 17:45 36.4 C L 62 16 107/73 99 05/02/19 16:51 36.3 C L 56 L 17 115/71 100 05/02/19 16:36 36.3 C L 05/02/19 16:15 35.9 C L 05/02/19 15:48 35.9 C L 50 L 16 109/71 100 05/02/19 15:45 36.4 C L 62 16 107/73 99 05/02/19 15:19 35.8 C L 44 L 17 106/69 100 05/02/19 14:43 36.4 C L 44 L 15 106/67 93 05/02/19 14:30 53 L 18 113/53 L 98 05/02/19 14:15 36.0 C L 51 L 17 120/57 L 98 05/02/19 14:05 53 L 16 132/73 99 05/02/19 13:55 62 13 122/84 100 05/02/19 13:45 65 18 118/66 98 05/02/19 13:37 36.0 C L 72 18 118/63 98 05/02/19 10:37 36.6 C 54 L 20 140/74 98 Pain Intensity Left Shoulder: Pain Intensity: 4 Notes Mental Status: alert / awake / arousable and participated in evaluation Patient Amnestic to Procedure: Yes Nausea / Vomiting: adequately controlled Pain: adequately controlled Airway Patency, RR, SpO2: stable & adequate BP & HR: stable & adequate Hydration State: stable & adequate Anesthetic Complications: no major complications apparent and Pt Satisfied with anesthetic care
[2019-05-03] MEDS ORDERED: MULTIVITAMIN TAB PO SCH (09:00)
[2019-05-03] MEDS: DOCUSATE SODIUM 100 MG CAP PO SCH (09:53)
== END 2019-05-03 13:58 | disposition home health service (06) | DRG 483 ==
LOC: ASU 09:54 → 3E 13:40